=== PATIENT | male | born 1940 | race Asian ===

== ENCOUNTER 2016-02-18 08:11 | Outpatient (CLI) | payer MEDICARE ==
[2016-02-18] MEDS ORDERED: XYLOCAINE TOPICAL 2% ONE ×2 (08:47)
[2016-02-18] MEDS ORDERED: AD OINTMENT TP ONE (09:32)
[2016-02-18] MEDS ORDERED: XYLOCAINE TOPICAL 2% TP ONE (15:43)
[2016-02-19] MEDS ORDERED: AD OINTMENT TP SCH (10:00)
== END 2016-02-18 08:12 | disposition home or self-care (01) ==
LOC: WOUND 08:11
PROVIDERS: ATTEND Internal Medicine
DX: E11.622 Type 2 diabetes mellitus with other skin ulcer (principal); L97.911 Non-pressure chronic ulcer of unspecified part of right lower leg limited to breakdown of skin; I11.0 Hypertensive heart disease with heart failure; I50.9 Heart failure, unspecified; M19.90 Unspecified osteoarthritis, unspecified site; K21.9 Gastro-esophageal reflux disease without esophagitis; E11.40 Type 2 diabetes mellitus with diabetic neuropathy, unspecified; Z85.46 Personal history of malignant neoplasm of prostate
CPT/HCPCS: 29580; A6250

== ENCOUNTER 2016-02-25 08:29 | Outpatient (CLI) | payer MEDICARE ==
[2016-02-25] MEDS ORDERED: XYLOCAINE TOPICAL 2% ONE (08:53)
[2016-02-25] MEDS ORDERED: XYLOCAINE TOPICAL 2% TP ONE (14:32)
== END 2016-02-25 08:30 | disposition home or self-care (01) ==
LOC: WOUND 08:29
PROVIDERS: ATTEND Podiatrist
DX: I87.311 Chronic venous hypertension (idiopathic) with ulcer of right lower extremity (principal); E11.622 Type 2 diabetes mellitus with other skin ulcer; L97.912 Non-pressure chronic ulcer of unspecified part of right lower leg with fat layer exposed; I11.0 Hypertensive heart disease with heart failure; I50.9 Heart failure, unspecified; E11.40 Type 2 diabetes mellitus with diabetic neuropathy, unspecified; M19.90 Unspecified osteoarthritis, unspecified site; K21.9 Gastro-esophageal reflux disease without esophagitis; Z85.9 Personal history of malignant neoplasm, unspecified
CPT/HCPCS: 29580

== ENCOUNTER 2016-03-10 09:23 | Outpatient (CLI) | payer MEDICARE ==
[2016-03-10] MEDS ORDERED: XYLOCAINE TOPICAL 2% ONE (09:31)
[2016-03-10] MEDS ORDERED: XYLOCAINE TOPICAL 2% TP ONE (11:19)
== END 2016-03-10 09:24 | disposition home or self-care (01) ==
LOC: WOUND 09:23
PROVIDERS: ATTEND Podiatrist
DX: E11.622 Type 2 diabetes mellitus with other skin ulcer (principal); I87.311 Chronic venous hypertension (idiopathic) with ulcer of right lower extremity; L97.812 Non-pressure chronic ulcer of other part of right lower leg with fat layer exposed; E11.40 Type 2 diabetes mellitus with diabetic neuropathy, unspecified; E11.620 Type 2 diabetes mellitus with diabetic dermatitis; I11.0 Hypertensive heart disease with heart failure; I50.9 Heart failure, unspecified; K21.9 Gastro-esophageal reflux disease without esophagitis; M19.90 Unspecified osteoarthritis, unspecified site; Z85.46 Personal history of malignant neoplasm of prostate

== ENCOUNTER 2016-03-17 08:36 | Outpatient (CLI) | payer MEDICARE ==
[2016-03-17] MEDS ORDERED: XYLOCAINE TOPICAL 2% ONE (09:31)
[2016-03-17] MEDS ORDERED: XYLOCAINE TOPICAL 2% TP ONE (11:00)
== END 2016-03-17 08:37 | disposition home or self-care (01) ==
LOC: WOUND 08:36
PROVIDERS: ATTEND Podiatrist
DX: E11.622 Type 2 diabetes mellitus with other skin ulcer (principal); I87.311 Chronic venous hypertension (idiopathic) with ulcer of right lower extremity; L97.812 Non-pressure chronic ulcer of other part of right lower leg with fat layer exposed; E11.620 Type 2 diabetes mellitus with diabetic dermatitis; E11.40 Type 2 diabetes mellitus with diabetic neuropathy, unspecified; I11.0 Hypertensive heart disease with heart failure; I50.9 Heart failure, unspecified; M19.90 Unspecified osteoarthritis, unspecified site; K21.9 Gastro-esophageal reflux disease without esophagitis; Z85.46 Personal history of malignant neoplasm of prostate

== ENCOUNTER 2016-03-24 09:27 | Outpatient (CLI) | payer MEDICARE ==
[2016-03-24] MEDS ORDERED: XYLOCAINE TOPICAL 2% ONE (09:46)
[2016-03-24] MEDS ORDERED: XYLOCAINE TOPICAL 4% TP ONE (15:10)
== END 2016-03-24 09:28 | disposition home or self-care (01) ==
LOC: WOUND 09:27
PROVIDERS: ATTEND Podiatrist
DX: I87.311 Chronic venous hypertension (idiopathic) with ulcer of right lower extremity (principal); E11.622 Type 2 diabetes mellitus with other skin ulcer; L97.812 Non-pressure chronic ulcer of other part of right lower leg with fat layer exposed; E11.620 Type 2 diabetes mellitus with diabetic dermatitis; I11.0 Hypertensive heart disease with heart failure; I50.9 Heart failure, unspecified; E11.40 Type 2 diabetes mellitus with diabetic neuropathy, unspecified; M19.90 Unspecified osteoarthritis, unspecified site; K21.9 Gastro-esophageal reflux disease without esophagitis; Z85.46 Personal history of malignant neoplasm of prostate; Z96.649 Presence of unspecified artificial hip joint

== ENCOUNTER 2016-03-31 10:49 | Outpatient (CLI) | payer MEDICARE ==
[2016-03-31] MEDS ORDERED: XYLOCAINE TOPICAL 2% ONE (12:27)
[2016-03-31] MEDS ORDERED: XYLOCAINE TOPICAL 2% TP ONE (12:37)
== END 2016-03-31 10:50 | disposition home or self-care (01) ==
LOC: WOUND 10:49
PROVIDERS: ATTEND Podiatrist
DX: I87.311 Chronic venous hypertension (idiopathic) with ulcer of right lower extremity (principal); E11.622 Type 2 diabetes mellitus with other skin ulcer; L97.812 Non-pressure chronic ulcer of other part of right lower leg with fat layer exposed; E11.620 Type 2 diabetes mellitus with diabetic dermatitis; I11.0 Hypertensive heart disease with heart failure; I50.9 Heart failure, unspecified; E11.40 Type 2 diabetes mellitus with diabetic neuropathy, unspecified; K21.9 Gastro-esophageal reflux disease without esophagitis; M19.90 Unspecified osteoarthritis, unspecified site; Z85.9 Personal history of malignant neoplasm, unspecified; Z96.649 Presence of unspecified artificial hip joint

== ENCOUNTER 2016-04-14 08:52 | Outpatient (CLI) | payer MEDICARE ==
[2016-04-14] MEDS ORDERED: XYLOCAINE TOPICAL 2% ONE (09:03)
[2016-04-14] MEDS ORDERED: XYLOCAINE TOPICAL 2% TP ONE (12:11)
== END 2016-04-14 08:53 | disposition home or self-care (01) ==
LOC: WOUND 08:52
PROVIDERS: ATTEND Podiatrist
DX: I87.311 Chronic venous hypertension (idiopathic) with ulcer of right lower extremity (principal); E11.622 Type 2 diabetes mellitus with other skin ulcer; L97.812 Non-pressure chronic ulcer of other part of right lower leg with fat layer exposed; E11.620 Type 2 diabetes mellitus with diabetic dermatitis; M19.90 Unspecified osteoarthritis, unspecified site; K21.9 Gastro-esophageal reflux disease without esophagitis; Z85.46 Personal history of malignant neoplasm of prostate; I11.0 Hypertensive heart disease with heart failure; I50.9 Heart failure, unspecified

== ENCOUNTER 2016-04-28 09:16 | Outpatient (CLI) | payer MEDICARE ==
[2016-04-28] MEDS ORDERED: XYLOCAINE TOPICAL 2% ONE (09:26)
[2016-04-28] MEDS ORDERED: XYLOCAINE TOPICAL 2% TP ONE (09:39)
== END 2016-04-28 09:17 | disposition home or self-care (01) ==
LOC: WOUND 09:16
PROVIDERS: ATTEND Podiatrist
DX: I87.311 Chronic venous hypertension (idiopathic) with ulcer of right lower extremity (principal); E11.622 Type 2 diabetes mellitus with other skin ulcer; L97.812 Non-pressure chronic ulcer of other part of right lower leg with fat layer exposed; I11.0 Hypertensive heart disease with heart failure; I50.9 Heart failure, unspecified; E11.40 Type 2 diabetes mellitus with diabetic neuropathy, unspecified; M19.90 Unspecified osteoarthritis, unspecified site; K21.9 Gastro-esophageal reflux disease without esophagitis; Z85.46 Personal history of malignant neoplasm of prostate; Z96.649 Presence of unspecified artificial hip joint

== ENCOUNTER 2016-05-05 08:12 | Outpatient (CLI) | payer MEDICARE ==
[2016-05-05] MEDS ORDERED: XYLOCAINE TOPICAL 2% ONE (08:19)
[2016-05-05] MEDS ORDERED: XYLOCAINE TOPICAL 2% TP ONE (08:36)
== END 2016-05-05 08:13 | disposition home or self-care (01) ==
LOC: WOUND 08:12
PROVIDERS: ATTEND Podiatrist
DX: E11.622 Type 2 diabetes mellitus with other skin ulcer (principal); L97.811 Non-pressure chronic ulcer of other part of right lower leg limited to breakdown of skin; I87.311 Chronic venous hypertension (idiopathic) with ulcer of right lower extremity; R60.0 Localized edema; L30.9 Dermatitis, unspecified; I11.0 Hypertensive heart disease with heart failure; I50.9 Heart failure, unspecified; E11.40 Type 2 diabetes mellitus with diabetic neuropathy, unspecified; M19.90 Unspecified osteoarthritis, unspecified site; Z85.46 Personal history of malignant neoplasm of prostate; K21.9 Gastro-esophageal reflux disease without esophagitis

== ENCOUNTER 2016-06-21 07:48 | Day surgery (SDC) | payer MEDICARE ==
--- NOTE | 2016-06-21 08:40 | Anesthesia Consultation ---
Anesthesia Consult and Med Hx Date of service: 06/21/16 - Airway Anesthetic Teeth Evaluation: Poor, Chipped (many missing teeth) ROM Head & Neck: Adequate Mental/Hyoid Distance: Inadequate Mallampati Class: Class III Intubation Access Assessment: Possibly Difficult - Pulmonary Exam CTA: Yes - Cardiac Exam Cardiac Exam: RRR - Pre-Operative Health Status ASA Pre-Surgery Classification: ASA3 Proposed Anesthetic Plan: MAC - Pulmonary Hx Smoking: No Hx Asthma: No SOB: Yes (GOING UP STAIRS) Hx Pneumonia: Yes Hx Sleep Apnea: Yes - Cardiovascular System Hx Hypertension: Yes (CHF with ascites and LE edema) Hx Peripheral Vascular Disease: Yes - Central Nervous System Hx Seizures: No Hx Psychiatric Problems: No - Gastrointestinal Hx Gastroesophageal Reflux Disease: Yes - Endocrine Hx Insulin Dependent Diabetes: Yes Hx Thyroid Disease: No - Hematic Hx Anemia: Yes (in past) Hx Sickle Cell Disease: No - Other Systems Hx Alcohol Use: No Hx Substance Use: No Hx Cancer: Yes (LEUKEMIA CLL ; 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
--- NOTE | 2016-06-21 08:41 | Anesthesia Day of Surgery ---
Anesthesia Day of Surgery - Day of Surgery Patient Examined: Yes Patient H&P Reviewed: Yes Patient is NPO: Yes Beta Blockers: Yes
[2016-06-21] MEDS ORDERED: AMIDATE IV ONE (08:43)
[2016-06-21] MEDS ORDERED: DIPRIVAN 10 MG/ML IV ONE (08:43)
[2016-06-21] MEDS ORDERED: NACL 0.9% 1000 ML 1,000 ML IV SCH (09:00)
[2016-06-21] MEDS ORDERED: NACL 0.9% 1000 ML 1,000 ML ONE (09:16)
--- NOTE | 2016-06-21 09:56 | Short Stay Summary ---
Short Stay Documentation Date of service: 06/21/16 - History H&P: obtained from office - Allergies and Medications Current Medications: Allergies No Known Allergies Allergy (Verified 09/15/13 10:50) Home Medications Medication Instructions Recorded Confirmed Last Taken Type Furosemide 40 mg PO BID 09/15/13 06/21/16 06/20/16 History Insulin Aspart [NovoLOG Flexpen] 40 units SQ TID 09/15/13 06/21/16 06/20/16 History Insulin Detemir [Levemir Flexpen] 65 units SQ BID 09/15/13 06/21/16 06/20/16 History Lisinopril 20 mg PO DAILY 09/15/13 06/21/16 06/20/16 History Potassium Chloride 10 meq PO BID 09/15/13 06/21/16 06/20/16 History Pravastatin (Nf) [Pravachol] 40 mg PO QHS 09/15/13 06/21/16 02/06/16 History Atenolol 25 tab PO DAILY 09/17/13 06/21/16 06/20/16 History Acyclovir [Zovirax Tab] 800 mg PO BID 05/18/14 06/21/16 06/20/16 History Omeprazole [PriLOSEC] 40 mg PO DAILY 05/18/14 06/21/16 06/20/16 History Ascorbic Acid [Vitamin C] 1,000 mg PO BID 10/14/15 06/21/16 06/20/16 History Aspirin [Adult Low Dose Aspirin EC] 81 mg PO DAILY 10/14/15 06/21/16 04/05/16 History Cetirizine HCl [ZyrTEC] 10 mg PO DAILY 10/14/15 06/21/16 06/20/16 History Doxazosin [Cardura] 4 mg PO QDAY 10/14/15 06/21/16 06/20/16 History Fluticasone [Flonase] 1 spray NS QDAY 10/14/15 06/21/16 06/20/16 History Gluc Hathaway/Chondro Hathaway A/Vit C/Mn 1 each PO BID 10/14/15 06/21/16 06/20/16 History [Glucosamine 1,500 Complex Cp] Iron 56 mg PO DAILY 10/14/15 06/21/16 10/13/15 History Loratadine [Claritin] 10 mg PO DAILY 10/14/15 06/21/16 10/13/15 History Mv,Ca,Min/Iron Fum/FA/Lyco/Lut 1 tab PO DAILY 10/14/15 06/21/16 06/20/16 History [Complete Multi Tablet] Morven-3 Fatty Acids/Fish Oil [Fish 1,000 mg PO BID 10/14/15 06/21/16 06/20/16 History Oil] Gabapentin [Gabapentin] 300 mg PO BID 06/21/16 06/21/16 06/20/16 History Active Medications Sodium Chloride (Nacl 0.9% 1000 Ml) 1,000 mls @ 50 mls/hr IV DIRECT MARCELLO - Brief post op/procedure progress note Date of procedure: 06/21/16 Findings: see dictated report Estimated blood loss: none Pathology: none Condition: stable - Disposition Condition at discharge: Good Disposition: DISCHARGED TO HOME OR SELFCARE - Discharge Diagnoses (1) Anemia due to chronic blood loss Status: Acute Short Stay Discharge Plan Activity: other (no driving for 24 hours) Weight Bearing Status: Full Weight Bearing Diet: regular Follow up with: VANESSA QUIROZ MD [Primary Care Provider] - 7 Days
[2016-06-21 10:34] VITALS: BP 113/63
--- NOTE | 2016-06-21 11:27 | Operative Report ---
Operative Report Operative Report: Date of procedure: 06/21/2016 Procedure: Esophagogastroduodenoscopy Preprocedure diagnosis: Anemia suspected secondary to chronic blood loss. History of splenomegaly and thrombocytopenia-rule out portal hypertension. Post procedure diagnosis: Small esophageal varices, mild portal hypertension gastropathy consistent with portal hypertension and cirrhosis based on other history from the patient. Endoscopist: Dr. Nails Anesthesia: Monitored anesthesia care per anesthesia department Medications: [Propofol per anesthesia] Estimated blood loss: 0 After careful discussion of the nature and purpose of the procedure as well as details the technique risks benefits and alternatives consent was obtained. The patient was placed in the left lateral decubitus position and medicated per anesthesia. The tip of the [employer] EQ 570 video scope was passed per orum under direct vision into the esophagus and advanced into the stomach and descending duodenum. The descending duodenum the duodenal bulb and pylorus were symmetrical and normal. The scope was withdrawn into the stomach and the stomach then gently insufflated with air. The antrum was normal. The stomach was further insufflated and the scope was then retroflexed and partially withdrawn. The cardia, fundus, and body of the stomach revealed mild vascular congestion consistent with portal hypertension gastropathy. The scope was then withdrawn in the forward position. The esophagogastric junction was at 44 cm. Small, 1+, varices were present in the distal third of the esophagus which disappeared with insufflation.. The esophageal body was otherwise normal throughout. The procedure was was well tolerated and the patient was observed in recovery. Impressions: [Small esophageal varices and probable portal hypertension gastropathy consistent with portal hypertension in the setting. The patient likely has underlying cirrhosis secondary to CHANG in the setting of splenomegaly , thrombocytopenia and a fatty liver.] Plan: Continue beta kate with office follow-up in 6 months. Periodic screening for hepatoma with imaging studies. NSAID avoidance Electronically signed: Henri Nails MD
--- NOTE | 2016-06-21 11:28 | Post Anesthesia Evaluation ---
- Post Anesthesia Evaluation Patient Participated: Yes Airway Patent: Yes Stable Respiratory Function: Yes Nausea/Vomiting: No Temp > 96.8F: Yes Pain Manageable: Yes Adequeate Hydration: Yes Anesthesia Complications: No Block Receding Appropriately: Not Applicable Patient on Ventilator: No
== END 2016-06-21 07:49 | disposition home or self-care (01) ==
LOC: GIO 07:48
PROVIDERS: ATTEND Internal Medicine Gastroenterology
DX: I85.00 Esophageal varices without bleeding (principal); K76.0 Fatty (change of) liver, not elsewhere classified; D69.6 Thrombocytopenia, unspecified; R16.1 Splenomegaly, not elsewhere classified; D50.0 Iron deficiency anemia secondary to blood loss (chronic); I11.0 Hypertensive heart disease with heart failure; I50.9 Heart failure, unspecified; E11.9 Type 2 diabetes mellitus without complications; F10.21 Alcohol dependence, in remission; K21.9 Gastro-esophageal reflux disease without esophagitis; E66.9 Obesity, unspecified; Z68.39 Body mass index [BMI] 39.0-39.9, adult; Z85.46 Personal history of malignant neoplasm of prostate; Z98.52 Vasectomy status; Z96.642 Presence of left artificial hip joint; Z87.01 Personal history of pneumonia (recurrent); Z85.6 Personal history of leukemia; Z79.899 Other long term (current) drug therapy; Z79.82 Long term (current) use of aspirin; Z79.4 Long term (current) use of insulin; Z83.3 Family history of diabetes mellitus; Z80.8 Family history of malignant neoplasm of other organs or systems
CPT/HCPCS: 43235; J2704; J7030

== ENCOUNTER 2018-12-17 12:52 | Outpatient (CLI) | payer MEDICARE ==
[2018-12-17] MEDS ORDERED: LIDOCAINE (4%) 40 MG/ML TOPICAL SOLN 50 ML BOTTLE TP ONE (13:03)
== END 2018-12-17 12:53 | disposition home or self-care (01) ==
LOC: WOUND 12:52
PROVIDERS: ATTEND Surgery
DX: E11.622 Type 2 diabetes mellitus with other skin ulcer (principal); L97.811 Non-pressure chronic ulcer of other part of right lower leg limited to breakdown of skin; I87.311 Chronic venous hypertension (idiopathic) with ulcer of right lower extremity; R60.0 Localized edema; L30.9 Dermatitis, unspecified; I11.0 Hypertensive heart disease with heart failure; I50.9 Heart failure, unspecified; E11.40 Type 2 diabetes mellitus with diabetic neuropathy, unspecified; M19.90 Unspecified osteoarthritis, unspecified site; K21.9 Gastro-esophageal reflux disease without esophagitis; Z85.46 Personal history of malignant neoplasm of prostate
CPT/HCPCS: 99215; G0463

== ENCOUNTER 2018-12-24 12:57 | Outpatient (CLI) | payer MEDICARE ==
[2018-12-24] MEDS ORDERED: LIDOCAINE (4%) 40 MG/ML TOPICAL SOLN 50 ML BOTTLE TP ONE (13:12)
== END 2018-12-24 12:58 | disposition home or self-care (01) ==
LOC: WOUND 12:57
PROVIDERS: ATTEND Surgery
DX: E11.622 Type 2 diabetes mellitus with other skin ulcer (principal); L97.811 Non-pressure chronic ulcer of other part of right lower leg limited to breakdown of skin; I87.311 Chronic venous hypertension (idiopathic) with ulcer of right lower extremity; E11.40 Type 2 diabetes mellitus with diabetic neuropathy, unspecified; R60.0 Localized edema; L30.9 Dermatitis, unspecified; I11.0 Hypertensive heart disease with heart failure; I50.9 Heart failure, unspecified; M19.90 Unspecified osteoarthritis, unspecified site; K21.9 Gastro-esophageal reflux disease without esophagitis; Z85.46 Personal history of malignant neoplasm of prostate

== ENCOUNTER 2018-12-31 13:04 | Outpatient (CLI) | payer MEDICARE ==
[2018-12-31] MEDS ORDERED: LIDOCAINE (4%) 40 MG/ML TOPICAL SOLN 50 ML BOTTLE TP ONE (13:15)
== END 2018-12-31 13:05 | disposition home or self-care (01) ==
LOC: WOUND 13:04
PROVIDERS: ATTEND Surgery
DX: E11.622 Type 2 diabetes mellitus with other skin ulcer (principal); L97.811 Non-pressure chronic ulcer of other part of right lower leg limited to breakdown of skin; I87.311 Chronic venous hypertension (idiopathic) with ulcer of right lower extremity; E11.40 Type 2 diabetes mellitus with diabetic neuropathy, unspecified; R60.0 Localized edema; L30.9 Dermatitis, unspecified; I11.0 Hypertensive heart disease with heart failure; I50.9 Heart failure, unspecified; M19.90 Unspecified osteoarthritis, unspecified site; K21.9 Gastro-esophageal reflux disease without esophagitis; Z85.46 Personal history of malignant neoplasm of prostate

== ENCOUNTER 2019-01-08 10:30 | Outpatient (CLI) | payer MEDICARE ==
[2019-01-08] MEDS ORDERED: LIDOCAINE (4%) 40 MG/ML TOPICAL SOLN 50 ML BOTTLE TP NR (11:00)
[2019-01-08] MEDS ORDERED: VITAMIN A & D OINT 56.7 GM TP SCH (12:00)
== END 2019-01-08 10:31 | disposition home or self-care (01) ==
LOC: WOUND 10:30
PROVIDERS: ATTEND Surgery
DX: E11.622 Type 2 diabetes mellitus with other skin ulcer (principal); L97.811 Non-pressure chronic ulcer of other part of right lower leg limited to breakdown of skin; I87.311 Chronic venous hypertension (idiopathic) with ulcer of right lower extremity; E11.40 Type 2 diabetes mellitus with diabetic neuropathy, unspecified; R60.0 Localized edema; L30.9 Dermatitis, unspecified; I11.0 Hypertensive heart disease with heart failure; I50.9 Heart failure, unspecified; M19.90 Unspecified osteoarthritis, unspecified site; K21.9 Gastro-esophageal reflux disease without esophagitis; Z85.46 Personal history of malignant neoplasm of prostate
CPT/HCPCS: A6250

== ENCOUNTER 2019-01-16 12:52 | Outpatient (CLI) | payer MEDICARE ==
[2019-01-16] MEDS ORDERED: LIDOCAINE (4%) 40 MG/ML TOPICAL SOLN 50 ML BOTTLE TP ONE (12:56)
== END 2019-01-16 12:53 | disposition home or self-care (01) ==
LOC: WOUND 12:52
PROVIDERS: ATTEND Surgery
DX: E11.622 Type 2 diabetes mellitus with other skin ulcer (principal); L97.811 Non-pressure chronic ulcer of other part of right lower leg limited to breakdown of skin; I87.311 Chronic venous hypertension (idiopathic) with ulcer of right lower extremity; E11.40 Type 2 diabetes mellitus with diabetic neuropathy, unspecified; R60.0 Localized edema; L30.9 Dermatitis, unspecified; I11.0 Hypertensive heart disease with heart failure; I50.9 Heart failure, unspecified; M19.90 Unspecified osteoarthritis, unspecified site; K21.9 Gastro-esophageal reflux disease without esophagitis; Z85.46 Personal history of malignant neoplasm of prostate

== ENCOUNTER 2019-01-23 13:07 | Outpatient (CLI) | payer MEDICARE ==
[2019-01-23] MEDS ORDERED: LIDOCAINE (4%) 40 MG/ML TOPICAL SOLN 50 ML BOTTLE TP ONE (13:14)
== END 2019-01-23 13:08 | disposition home or self-care (01) ==
LOC: WOUND 13:07
PROVIDERS: ATTEND Surgery
DX: E11.622 Type 2 diabetes mellitus with other skin ulcer (principal); L97.811 Non-pressure chronic ulcer of other part of right lower leg limited to breakdown of skin; I87.311 Chronic venous hypertension (idiopathic) with ulcer of right lower extremity; E11.40 Type 2 diabetes mellitus with diabetic neuropathy, unspecified; R60.0 Localized edema; L30.9 Dermatitis, unspecified; I11.0 Hypertensive heart disease with heart failure; I50.9 Heart failure, unspecified; M19.90 Unspecified osteoarthritis, unspecified site; K21.9 Gastro-esophageal reflux disease without esophagitis; Z85.46 Personal history of malignant neoplasm of prostate

== ENCOUNTER 2019-02-11 13:29 | Outpatient (CLI) | payer MEDICARE ==
[2019-02-11] MEDS ORDERED: LIDOCAINE (4%) 40 MG/ML TOPICAL SOLN 50 ML BOTTLE TP ONE (14:06)
== END 2019-02-11 13:30 | disposition home or self-care (01) ==
LOC: WOUND 13:29
PROVIDERS: ATTEND Surgery
DX: E11.622 Type 2 diabetes mellitus with other skin ulcer (principal); L97.811 Non-pressure chronic ulcer of other part of right lower leg limited to breakdown of skin; I87.311 Chronic venous hypertension (idiopathic) with ulcer of right lower extremity; E11.40 Type 2 diabetes mellitus with diabetic neuropathy, unspecified; R60.0 Localized edema; L30.9 Dermatitis, unspecified; I11.0 Hypertensive heart disease with heart failure; I50.9 Heart failure, unspecified; M19.90 Unspecified osteoarthritis, unspecified site; K21.9 Gastro-esophageal reflux disease without esophagitis; Z85.46 Personal history of malignant neoplasm of prostate

== ENCOUNTER 2019-02-18 13:11 | Outpatient (CLI) | payer MEDICARE ==
[2019-02-18] MEDS ORDERED: LIDOCAINE (4%) 40 MG/ML TOPICAL SOLN 50 ML BOTTLE TP ONE (13:30)
== END 2019-02-18 13:12 | disposition home or self-care (01) ==
LOC: WOUND 13:11
PROVIDERS: ATTEND Surgery
DX: E11.622 Type 2 diabetes mellitus with other skin ulcer (principal); L97.811 Non-pressure chronic ulcer of other part of right lower leg limited to breakdown of skin; I87.311 Chronic venous hypertension (idiopathic) with ulcer of right lower extremity; E11.40 Type 2 diabetes mellitus with diabetic neuropathy, unspecified; R60.0 Localized edema; L30.9 Dermatitis, unspecified; I11.0 Hypertensive heart disease with heart failure; I50.9 Heart failure, unspecified; M19.90 Unspecified osteoarthritis, unspecified site; K21.9 Gastro-esophageal reflux disease without esophagitis; Z85.46 Personal history of malignant neoplasm of prostate

== ENCOUNTER 2019-02-25 13:31 | Outpatient (CLI) | payer MEDICARE ==
[2019-02-25] MEDS ORDERED: LIDOCAINE (4%) 40 MG/ML TOPICAL SOLN 50 ML BOTTLE TP ONE (13:41)
== END 2019-02-25 13:32 | disposition home or self-care (01) ==
LOC: WOUND 13:31
PROVIDERS: ATTEND Surgery
DX: E11.622 Type 2 diabetes mellitus with other skin ulcer (principal); L97.811 Non-pressure chronic ulcer of other part of right lower leg limited to breakdown of skin; E11.40 Type 2 diabetes mellitus with diabetic neuropathy, unspecified; R60.0 Localized edema; I11.0 Hypertensive heart disease with heart failure; I50.9 Heart failure, unspecified; M19.90 Unspecified osteoarthritis, unspecified site; K21.9 Gastro-esophageal reflux disease without esophagitis; Z85.46 Personal history of malignant neoplasm of prostate; Z96.649 Presence of unspecified artificial hip joint

== ENCOUNTER 2019-03-04 13:29 | Outpatient (CLI) | payer MEDICARE ==
[2019-03-04] MEDS ORDERED: LIDOCAINE (4%) 40 MG/ML TOPICAL SOLN 50 ML BOTTLE TP ONE (13:57)
== END 2019-03-04 13:30 | disposition home or self-care (01) ==
LOC: WOUND 13:29
PROVIDERS: ATTEND Surgery
DX: E11.622 Type 2 diabetes mellitus with other skin ulcer (principal); L97.811 Non-pressure chronic ulcer of other part of right lower leg limited to breakdown of skin; E11.40 Type 2 diabetes mellitus with diabetic neuropathy, unspecified; R60.0 Localized edema; I11.0 Hypertensive heart disease with heart failure; I50.9 Heart failure, unspecified; M19.90 Unspecified osteoarthritis, unspecified site; Z85.46 Personal history of malignant neoplasm of prostate; K21.9 Gastro-esophageal reflux disease without esophagitis; Z96.649 Presence of unspecified artificial hip joint

== ENCOUNTER 2019-03-07 14:45 | Outpatient (CLI) | payer MEDICARE | END 2019-03-07 14:46 | disposition home or self-care (01) | LOC: WOUND 14:45 | PROVIDERS: ATTEND Surgery | DX: E11.622 Type 2 diabetes mellitus with other skin ulcer (principal); I87.311 Chronic venous hypertension (idiopathic) with ulcer of right lower extremity; L97.811 Non-pressure chronic ulcer of other part of right lower leg limited to breakdown of skin; E11.40 Type 2 diabetes mellitus with diabetic neuropathy, unspecified; R60.0 Localized edema; I11.0 Hypertensive heart disease with heart failure; I50.9 Heart failure, unspecified; M19.90 Unspecified osteoarthritis, unspecified site; Z85.46 Personal history of malignant neoplasm of prostate; K21.9 Gastro-esophageal reflux disease without esophagitis; Z96.649 Presence of unspecified artificial hip joint ==

== ENCOUNTER 2019-03-20 11:33 | Outpatient (CLI) | payer MEDICARE ==
[2019-03-20] MEDS ORDERED: LIDOCAINE (4%) 40 MG/ML TOPICAL SOLN 50 ML BOTTLE TP ONE (11:36)
== END 2019-03-20 11:34 | disposition home or self-care (01) ==
LOC: WOUND 11:33
PROVIDERS: ATTEND Surgery
DX: E11.622 Type 2 diabetes mellitus with other skin ulcer (principal); I87.311 Chronic venous hypertension (idiopathic) with ulcer of right lower extremity; L97.811 Non-pressure chronic ulcer of other part of right lower leg limited to breakdown of skin; E11.40 Type 2 diabetes mellitus with diabetic neuropathy, unspecified; R60.0 Localized edema; I11.0 Hypertensive heart disease with heart failure; I50.9 Heart failure, unspecified; M19.90 Unspecified osteoarthritis, unspecified site; K21.9 Gastro-esophageal reflux disease without esophagitis; Z85.46 Personal history of malignant neoplasm of prostate; Z96.649 Presence of unspecified artificial hip joint
CPT/HCPCS: 29581

== ENCOUNTER 2019-03-25 13:27 | Outpatient (CLI) | payer MEDICARE ==
[2019-03-25] MEDS ORDERED: LIDOCAINE (4%) 40 MG/ML TOPICAL SOLN 50 ML BOTTLE TP ONE (13:33)
== END 2019-03-25 13:28 | disposition home or self-care (01) ==
LOC: WOUND 13:27
PROVIDERS: ATTEND Surgery
DX: E11.622 Type 2 diabetes mellitus with other skin ulcer (principal); I87.311 Chronic venous hypertension (idiopathic) with ulcer of right lower extremity; L97.822 Non-pressure chronic ulcer of other part of left lower leg with fat layer exposed; E11.40 Type 2 diabetes mellitus with diabetic neuropathy, unspecified; R60.0 Localized edema; I11.0 Hypertensive heart disease with heart failure; I50.9 Heart failure, unspecified; M19.90 Unspecified osteoarthritis, unspecified site; K21.9 Gastro-esophageal reflux disease without esophagitis; Z85.46 Personal history of malignant neoplasm of prostate; Z96.649 Presence of unspecified artificial hip joint
CPT/HCPCS: 29581

== ENCOUNTER 2019-04-01 13:19 | Outpatient (CLI) | payer MEDICARE ==
[2019-04-01] MEDS ORDERED: LIDOCAINE (4%) 40 MG/ML TOPICAL SOLN 50 ML BOTTLE TP ONE (15:00)
== END 2019-04-01 13:20 | disposition home or self-care (01) ==
LOC: WOUND 13:19
PROVIDERS: ATTEND Surgery
DX: E11.622 Type 2 diabetes mellitus with other skin ulcer (principal); I87.311 Chronic venous hypertension (idiopathic) with ulcer of right lower extremity; L97.811 Non-pressure chronic ulcer of other part of right lower leg limited to breakdown of skin; E11.40 Type 2 diabetes mellitus with diabetic neuropathy, unspecified; R60.0 Localized edema; I11.0 Hypertensive heart disease with heart failure; I50.9 Heart failure, unspecified; M19.90 Unspecified osteoarthritis, unspecified site; K21.9 Gastro-esophageal reflux disease without esophagitis; Z85.46 Personal history of malignant neoplasm of prostate; Z96.649 Presence of unspecified artificial hip joint

== ENCOUNTER 2019-04-04 12:53 | Outpatient (CLI) | payer MEDICARE | END 2019-04-04 12:54 | disposition home or self-care (01) | LOC: WOUND 12:53 | PROVIDERS: ATTEND Surgery | DX: E11.622 Type 2 diabetes mellitus with other skin ulcer (principal); I87.311 Chronic venous hypertension (idiopathic) with ulcer of right lower extremity; L97.811 Non-pressure chronic ulcer of other part of right lower leg limited to breakdown of skin; E11.40 Type 2 diabetes mellitus with diabetic neuropathy, unspecified; R60.0 Localized edema; I11.0 Hypertensive heart disease with heart failure; I50.9 Heart failure, unspecified; M19.90 Unspecified osteoarthritis, unspecified site; K21.9 Gastro-esophageal reflux disease without esophagitis; Z85.46 Personal history of malignant neoplasm of prostate; Z96.649 Presence of unspecified artificial hip joint ==

== ENCOUNTER 2019-04-11 13:13 | Outpatient (CLI) | payer MEDICARE | END 2019-04-11 13:14 | disposition home or self-care (01) | LOC: WOUND 13:13 | PROVIDERS: ATTEND Surgery | DX: I87.311 Chronic venous hypertension (idiopathic) with ulcer of right lower extremity (principal); E11.622 Type 2 diabetes mellitus with other skin ulcer; L97.811 Non-pressure chronic ulcer of other part of right lower leg limited to breakdown of skin; E11.40 Type 2 diabetes mellitus with diabetic neuropathy, unspecified; R60.0 Localized edema; I11.0 Hypertensive heart disease with heart failure; I50.9 Heart failure, unspecified; M19.90 Unspecified osteoarthritis, unspecified site; K21.9 Gastro-esophageal reflux disease without esophagitis; Z85.46 Personal history of malignant neoplasm of prostate; Z96.649 Presence of unspecified artificial hip joint ==